=== PATIENT | female | born 1965 | race Caucasian/White ===

== ENCOUNTER 2016-12-05 16:31 | Emergency (ER) | payer OTHER, MEDICARE ==
[~2016-12-05] VITALS: Ht 162.6 cm; Wt 74.8 kg
[2016-12-05 18:40] VITALS: BP 138/67
[2016-12-05] MEDS ORDERED: ONDANSETRON ODT 4 MG TAB PO ONE (21:45)
[2016-12-05] MEDS ORDERED: traMADol HCL 50 MG TAB PO ONE (21:45)
== END 2016-12-05 22:11 | disposition home or self-care (01) ==
LOC: ER 16:36
DX: S16.1XXA Strain of muscle, fascia and tendon at neck level, initial encounter (principal); G89.29 Other chronic pain; M54.9 Dorsalgia, unspecified; F17.210 Nicotine dependence, cigarettes, uncomplicated; Z88.6 Allergy status to analgesic agent; Z88.1 Allergy status to other antibiotic agents; Z90.710 Acquired absence of both cervix and uterus; W19.XXXA Unspecified fall, initial encounter; Y93.89 Activity, other specified; Y99.8 Other external cause status; Y92.89 Other specified places as the place of occurrence of the external cause
CPT/HCPCS: 72125; 99284; Q0162